=== PATIENT | male | born 1965 | race Caucasian/White ===

== ENCOUNTER 2020-12-31 12:14 | Emergency (ER) | payer SELFPAY ==
[2020-12-31 13:06] LABS: HEMOGLOBIN 16.5 gm/dl (14.0-17.5); RED BLOOD COUNT 5.2 M/UL (4.20-5.50); WHITE BLOOD COUNT 12.7 K/UL (4.5-11.0)
[2020-12-31 13:45] LABS: BUN/CREATININE RATIO 16 (0-10)
[2020-12-31] MEDS ORDERED: IBU800 MG PO (16:32)
[2020-12-31] MEDS ORDERED: BACTRIM DS TAB1 EACH PO (16:32)
[2020-12-31] MEDS ORDERED: PEPCID20 MG PO (16:33)
[2020-12-31] MEDS ORDERED: ZOFRAN ODT 4 MG4 MG PO (16:33)
== END 2020-12-31 16:53 | disposition home or self-care (01) ==
LOC: ER1 12:14
PROVIDERS: Nurse Practitioner
DX: R07.89 Other chest pain (principal); L03.115 Cellulitis of right lower limb; R10.10 Upper abdominal pain, unspecified; F17.210 Nicotine dependence, cigarettes, uncomplicated
CPT/HCPCS: 71045; 80053; 82550; 82553; 83605; 83690; 83735; 84484; 85025; 96374; 96375; 99284; C9113; J2405; J7030; Q9967

== ENCOUNTER 2021-01-11 21:33 | Emergency (ER) | payer SELFPAY ==
[~2021-01-11 21:33] MED LIST: BACTRIM DS TAB1 EACH PO; IBU800 MG PO; PEPCID20 MG PO; ZOFRAN ODT 4 MG4 MG PO
[2021-01-11 22:14] LABS: HEMOGLOBIN 15.2 gm/dl (14.0-17.5); RED BLOOD COUNT 4.77 M/UL (4.20-5.50); WHITE BLOOD COUNT 10.8 K/UL (4.5-11.0)
[2021-01-11 22:35] LABS: BUN/CREATININE RATIO 17 (0-10)
== END 2021-01-12 17:18 | disposition short-term general hospital (02) ==
LOC: ER1 21:33
PROVIDERS: Emergency Medicine
DX: K29.80 Duodenitis without bleeding (principal); K26.9 Duodenal ulcer, unspecified as acute or chronic, without hemorrhage or perforation; Z20.822 Contact with and (suspected) exposure to COVID-19
CPT/HCPCS: 80053; 81001; 83690; 85025; 96374; 96375; 96376; 99285; C9113; J2270; J2405; J7030; Q9967; U0002